=== PATIENT | female | born 1980 | race American Indian/Alaskan Native ===

== ENCOUNTER 2017-01-18 00:53 | Emergency (ER) | payer SELFPAY ==
[2017-01-18] MEDS ORDERED: ZOFRAN ONE (01:26)
[2017-01-18] MEDS ORDERED: MORPHINE ONE (01:27)
[2017-01-18] MEDS ORDERED: MORPHINE IV ONE (01:27)
[2017-01-18] MEDS ORDERED: ZOFRAN IV ONE (01:40)
[2017-01-18 02:16] LABS: Alanine Aminotransferase 13 units/L (7-56); Albumin 4.4 g/dL (3.9-5); Albumin/Globulin Ratio 1.3 %; Alkaline Phosphatase 67 units/L (35-129); Anion Gap 19 mmol/L; BUN/Creatinine Ratio 11.11; Blood Urea Nitrogen 10 mg/dL (7-17); Calcium 9.5 mg/dL (8.4-10.2); Carbon Dioxide 25 mmol/L (22-30); Chloride 98.2 mmol/L (98-107); Glucose 114 mg/dL (65-100); Lipase 26 units/L (13-60); Potassium 3.7 mmol/L (3.6-5.0); Sodium 138 mmol/L (137-145); Total Protein 7.8 g/dL (6.3-8.2)
[2017-01-18 02:16] LABS: Basophils % (Auto) 0.5 % (0.0-1.8); Eosinophils % (Auto) 0.3 % (0.0-4.3); Hematocrit 42.2 % (30.3-42.9); Hemoglobin 14.2 gm/dl (10.1-14.3); Mean Corpuscular HGB Conc 34 % (30-34); Mean Corpuscular Hemoglobin 30 pg (28-32); Mean Corpuscular Volume 89 fl (79-97); Platelet Count 235 K/mm3 (140-440); Red Blood Count 4.75 M/mm3 (3.65-5.03); Red Cell Distribution Width 13.1 % (13.2-15.2)
[2017-01-18 05:39] LABS: Bilirubin,Urine NEG (Negative); Blood,Urine SM (Negative); Ketones,Urine NEG (Negative); Leukocyte Esterase,Urine NEG (Negative); Nitrite,Urine NEG (Negative); Protein,Urine <15 mg/dL mg/dL (Negative); Urobilinogen,Urine < 2.0 mg/dL (<2.0); WBC,Urine < 1.0 /HPF (0.0-6.0)
--- NOTE | 2017-01-18 06:18 | Emergency Department Report ---
HPI - General Chief Complaint: Abdominal Pain Time Seen by Provider: 01/18/17 06:01 - HPI HPI: This is a 36 year old female presents to the emergency department with a complaint of upper abdominal pain, nausea or vomiting since last night around 9 PM. The patient says that she thought it was a gas bubble. She received some morphine and Zofran upon arrival to the emergency department and by the time I'm seeing the patient, upon coming on shift, the patient says she is feeling much better with almost no abdominal discomfort and no nausea or further vomiting. She did not take anything for her symptoms prior to presentation. She denies any past medical history. She does not currently have a primary care physician. No recent travel or sick contacts at home. She denies any fever, dysuria, vaginal bleeding or discharge, back pain. ED Past Medical Hx - Past Medical History Previous Medical History?: No Additional medical history: Constipation - Surgical History Past Surgical History?: No - Social History Smoking Status: Never Smoker Substance Use Type: None - Medications Home Medications: Home Medications Medication Instructions Recorded Confirmed Last Taken Type No Known Home Medications [No 01/29/14 01/29/14 Unknown History Reported Home Medications] ED Review of Systems ROS: Stated complaint: ABD PAIN Other details as noted in HPI Comment: All other systems reviewed and negative Constitutional: denies: chills, fever Eyes: denies: eye pain, eye discharge, vision change ENT: denies: ear pain, throat pain Respiratory: denies: cough, shortness of breath, wheezing Cardiovascular: denies: chest pain, palpitations Gastrointestinal: abdominal pain, nausea, vomiting Genitourinary: denies: urgency, dysuria, discharge Musculoskeletal: denies: back pain, joint swelling, arthralgia Skin: denies: rash, lesions Neurological: denies: headache, weakness, paresthesias Physical Exam - Physical Exam Vital Signs: Vital Signs 01/18/17 01/18/17 01:09 05:43 Temperature 98 F Pulse Rate 81 60 Respiratory 18 18 Rate Blood Pressure 154/86 Blood Pressure 154/84 115/80 [Left] O2 Sat by Pulse 100 99 Oximetry Physical Exam: GENERAL: The patient is well-developed well-nourished. HENT: Normocephalic. Atraumatic. Patient has moist mucous membranes. EYES: Extraocular motions are intact. Pupils equal reactive to light bilaterally. NECK: Supple. Trachea is midline. CHEST/LUNGS: Clear to auscultation. There is no respiratory distress noted. HEART/CARDIOVASCULAR: Regular. There is no tachycardia. There is no gallop rub or murmur. ABDOMEN: Abdomen is soft, nontender. Patient has normal bowel sounds. There is no abdominal distention. SKIN: There is no rash. There is no edema. There is no diaphoresis. NEURO: The patient is awake, alert, and oriented. The patient is cooperative. The patient has no focal neurologic deficits. The patient has normal speech. MUSCULOSKELETAL: There is no tenderness or deformity. There is no limitation range of motion. There is no evidence of acute injury. ED Course Vital Signs 01/18/17 01/18/17 01:09 05:43 Temperature 98 F Pulse Rate 81 60 Respiratory 18 18 Rate Blood Pressure 154/86 Blood Pressure 154/84 115/80 [Left] O2 Sat by Pulse 100 99 Oximetry ED Medical Decision Making - Lab Data Result diagrams: 01/18/17 01:17 01/18/17 Unknown - Radiology Data Radiology results: report reviewed PROCEDURE: US ABDOMEN LIMITED TECHNIQUE: Real-time sonography was performed of the abdomen with image documentation. CPT 10325 HISTORY: Upper abd pain COMPARISON: None FINDINGS: There is no ascites. The proximal abdominal aorta is normal in size. The liver demonstrates no focal abnormality. There is a wall echo shadow complex consistent with a gallbladder with large stone or multiple stones. The partially visualized gallbladder wall is not thickened. The CBD is 4.4 millimeters in AP diameter. The pancreas and right kidney are normal. The right kidney measures 10.7 centimeters in length.. IMPRESSION: Wall echo shadow complex consistent with gallbladder with large stone or multiple stones. - Medical Decision Making 36-year-old female presents to the emergency department with some upper abdominal pain as well as nausea and vomiting. After the patient received morphine and Zofran, given by the overnight ER physician, the patient is asymptomatic by the time I have seen her when I come on shift. Labs are unremarkable. Vital signs stable throughout ED course. Physical exam is unremarkable. However the patient is 36 years old, female and allegedly fertile , and given this demographic there is concern for biliary colic. Ultrasound confirms some type of cholelithiasis with stones versus sludge. However the patient remains asymptomatic and does not appear to require any type of admission or surgical intervention at this time. She will be given referrals for primary care and general surgery. We discussed foods and alcohol to avoid. She will return to the ER with any worsening of her symptoms or any acute distress. - Differential Diagnosis cholelithiasis, cholecystitis, GERD, pancreatitis Critical Care Time: No Critical care attestation.: If time is entered above; I have spent that time in minutes in the direct care of this critically ill patient, excluding procedure time. ED Disposition Clinical Impression: Biliary colic Abdominal pain Qualifiers: Abdominal location: upper abdomen, unspecified Qualified Code(s): R10.10 - Upper abdominal pain, unspecified Nausea & vomiting Qualifiers: Vomiting type: unspecified Vomiting Intractability: non-intractable Qualified Code(s): R11.2 - Nausea with vomiting, unspecified Cholelithiasis Qualifiers: Cholelithiasis location: gallbladder Cholecystitis presence: without cholecystitis Biliary obstruction: without biliary obstruction Qualified Code(s) : K80.20 - Calculus of gallbladder without cholecystitis without obstruction Disposition: TO HOME OR SELFCARE Is pt being admited?: No Condition: Stable Instructions: Abdominal Pain (ED), Biliary Colic (ED) Additional Instructions: Please follow up with a primary care physician in the next few days. I have given you a referral for a local general surgeon, Dr. Joe, in case she would like to follow up and establish care regarding your gallstones. Hopefully you never had another gallbladder attack, or what we call biliary colic. However if this continues to occur, sometimes people will get the gallbladder removed electively in the outpatient setting and this would be done through a general surgeon. Please return to the emergency Department with any worsening of your symptoms, intractable pain, intractable vomiting, development of fever with it, or any acute distress. You can try and decrease the possibility of biliary colic by avoiding foods that are greasy, fatty and avoiding alcohol consumption. Referrals: PRIMARY CARE, [Primary Care Provider] - 3-5 Days SHERRY JOE DO [Staff Physician] - 3-5 Days THERESE VILA MD [Staff Physician] - 3-5 Days [facility] [Outside] - 3-5 Days Time of Disposition: 07:38
--- NOTE | 2017-01-18 07:27 | Ultrasound Report ---
FINAL REPORT PROCEDURE: US ABDOMEN LIMITED TECHNIQUE: Real-time sonography was performed of the abdomen with image documentation. CPT 98797 HISTORY: Upper abd pain COMPARISON: None FINDINGS: There is no ascites. The proximal abdominal aorta is normal in size. The liver demonstrates no focal abnormality. There is a wall echo shadow complex consistent with a gallbladder with large stone or multiple stones. The partially visualized gallbladder wall is not thickened. The CBD is 4.4 millimeters in AP diameter. The pancreas and right kidney are normal. The right kidney measures 10.7 centimeters in length.. IMPRESSION: Wall echo shadow complex consistent with gallbladder with large stone or multiple stones.
[2017-01-18 08:44] VITALS: BP 142/80
== END 2017-01-18 08:45 | disposition home or self-care (01) ==
LOC: ED 00:53
DX: K80.70 Calculus of gallbladder and bile duct without cholecystitis without obstruction (principal); R11.2 Nausea with vomiting, unspecified; R10.10 Upper abdominal pain, unspecified
CPT/HCPCS: 36415; 76705; 80053; 81001; 83690; 84703; 85025; 96374; 96375; 99284; J2270; J2405

== ENCOUNTER 2017-01-27 08:27 | Emergency (ER) | payer SELFPAY ==
[2017-01-27 08:37] VITALS: BP 149/82
[2017-01-27 08:53] LABS: Basophils % (Auto) 0.4 % (0.0-1.8); Eosinophils % (Auto) 0.7 % (0.0-4.3); Hematocrit 43.3 % (30.3-42.9); Mean Corpuscular HGB Conc 32 % (30-34); Mean Corpuscular Hemoglobin 29 pg (28-32); Mean Corpuscular Volume 90 fl (79-97); Platelet Count 247 K/mm3 (140-440); Red Blood Count 4.82 M/mm3 (3.65-5.03); Red Cell Distribution Width 13.1 % (13.2-15.2)
[2017-01-27 09:12] LABS: Alanine Aminotransferase 13 units/L (7-56); Albumin 4.2 g/dL (3.9-5); Albumin/Globulin Ratio 1.4 %; Alkaline Phosphatase 62 units/L (35-129); Anion Gap 17 mmol/L; Blood Urea Nitrogen 9 mg/dL (7-17); Carbon Dioxide 25 mmol/L (22-30); Chloride 101.8 mmol/L (98-107); Glucose 89 mg/dL (65-100); Lipase 28 units/L (13-60); Sodium 140 mmol/L (137-145); Total Protein 7.2 g/dL (6.3-8.2)
[2017-01-27 09:24] LABS: Bacteria,Urine 1+ /HPF (Negative); Bilirubin,Urine NEG (Negative); Blood,Urine MOD (Negative); Ketones,Urine NEG (Negative); Leukocyte Esterase,Urine MOD (Negative); Mucus,Urine FEW /HPF; Nitrite,Urine NEG (Negative); Protein,Urine <15 mg/dL mg/dL (Negative); Urobilinogen,Urine < 2.0 mg/dL (<2.0)
== END 2017-01-27 19:48 | disposition left against medical advice (07) ==
LOC: ED 08:27
DX: R10.9 Unspecified abdominal pain (principal); Z53.21 Procedure and treatment not carried out due to patient leaving prior to being seen by health care provider
CPT/HCPCS: 36415; 80053; 81001; 83690; 85025